=== PATIENT | male | born 1965 | race Caucasian/White ===

== ENCOUNTER 2018-06-20 07:48 | Emergency (ER) | payer OTHER ==
[~2018-06-20] VITALS: Ht 180.3 cm; Wt 80.0 kg
[~2018-06-20 07:48] MED LIST: BACTRIM DS1 TAB PO; CEPHALEXIN500 MG PO; CETIRIZINE10 MG PO; MOTRIN800 MG/TAB PO; NORCO1 TA1 PO; ULTRAM50 M1 PO
[2018-06-20 08:50] LABS: IMMATURE GRANULOCYTES 0.6 % (0.0-5.0); MEAN CELL VOLUME 93.1 fL CALC (80.0-100.0); MEAN CORPUSCULAR HGB 31.8 pG CALC (26.0-32.0); MEAN CORPUSCULAR HGB CONC 34.1 g/L CALC (32.0-36.0); NEUT# 5.07 thou/uL (1.82-7.42); RED BLOOD COUNT 5.38 mill/uL (4.70-6.10); RED CELL DISTRI WIDTH 12.9 % (11.5-15.5)
[2018-06-20 08:51] LABS: HEMATOCRIT 50.1 % (39.0-50.0); HEMOGLOBIN 17.1 g/dl (14.0-18.0)
[2018-06-20 09:05] LABS: ALBUMIN 4.4 g/dL (3.2-5.0); ALKALINE PHOSPHATASE 80 u/l (38-126); BILIRUBIN, TOTAL 0.5 mg/dL (0.0-1.4); BUN 25 mg/dL (9-20); BUN/CREATININE RATIO 26 (12-20 (CALC)); CHLORIDE 107 mmol/l (95-108); GFR > 60 ML/MIN (>=60 (CALC)); GFR FOR AFR.AMER. > 60 ML/MIN (>=60 (CALC)); LIPASE 48 u/l (23-300); POTASSIUM 4.4 mmol/l (3.5-5.1); SODIUM 138 mmol/l (137-146); TOTAL PROTEIN 7.5 g/dL (6.3-8.2)
[2018-06-20 09:06] LABS: ANION GAP 15 (6-22 (CALC)); CARBON DIOXIDE 20 mmol/l (22-30); SGOT/AST 37 u/l (17-59)
[2018-06-20] MEDS ORDERED: METRONIDAZOL250 MG PO (11:42)
[2018-06-20] MEDS ORDERED: BENTYL10 MG PO (11:42)
[2018-06-20 11:48] VITALS: BP 103/64
[2018-06-20 12:21] LABS: C. DIFFICILE TOXIN A&B NEGATIVE (NEGATIVE)
== END 2018-06-20 11:56 | disposition home or self-care (01) ==
LOC: ED 07:48
PROVIDERS: Emergency Medicine
DX: R19.7 Diarrhea, unspecified (principal); R10.33 Periumbilical pain; F17.210 Nicotine dependence, cigarettes, uncomplicated
CPT/HCPCS: Q9967

== ENCOUNTER 2020-01-07 10:39 | Emergency (ER) | payer OTHER ==
[~2020-01-07] VITALS: Ht 180.3 cm; Wt 90.0 kg
[~2020-01-07 10:39] MED LIST changes: +BENTYL10 MG PO; +METRONIDAZOL250 MG PO
[2020-01-07] MEDS ORDERED: CYCLOBENZAPR5 MG PO (14:48)
[2020-01-07 15:05] VITALS: BP 139/89
== END 2020-01-07 15:05 | disposition home or self-care (01) ==
LOC: ED 10:39
DX: M54.5 Low back pain (principal); G89.29 Other chronic pain; F17.200 Nicotine dependence, unspecified, uncomplicated

== ENCOUNTER 2020-02-17 14:05 | Emergency (ER) | payer OTHER ==
[~2020-02-17] VITALS: Ht 180.3 cm; Wt 70.0 kg
[~2020-02-17 14:05] MED LIST changes: +CYCLOBENZAPR5 MG PO
[2020-02-17] MEDS ORDERED: MOTRIN400 MG PO (15:56)
[2020-02-17] MEDS ORDERED: CYCLOBENZAPR5 MG PO (15:56)
[2020-02-17] MEDS ORDERED: NO HOME MED (16:16)
[2020-02-17 16:20] VITALS: BP 119/75
== END 2020-02-17 16:20 | disposition home or self-care (01) ==
LOC: ED 14:05
DX: M25.562 Pain in left knee (principal); M79.605 Pain in left leg; F17.200 Nicotine dependence, unspecified, uncomplicated; W01.0XXA Fall on same level from slipping, tripping and stumbling without subsequent striking against object, initial encounter; Y92.481 Parking lot as the place of occurrence of the external cause

== ENCOUNTER 2020-07-15 16:19 | Emergency (ER) | payer OTHER ==
[~2020-07-15] VITALS: Ht 177.8 cm; Wt 96.0 kg
[~2020-07-15 16:19] MED LIST changes: +MOTRIN400 MG PO; +NO HOME MED
[2020-07-15 17:54] LABS: HEMATOCRIT 46.2 % (39.0-50.0); HEMOGLOBIN 15.2 g/dl (14.0-18.0); IMMATURE GRANULOCYTES 0.4 % (0.0-5.0); MEAN CELL VOLUME 93.3 fL CALC (80.0-100.0); MEAN CORPUSCULAR HGB 30.7 pG CALC (26.0-32.0); MEAN CORPUSCULAR HGB CONC 32.9 g/dL CAL (32.0-36.0); NEUT# 4.9 thou/uL (1.82-7.42); RED BLOOD COUNT 4.95 mill/uL (4.70-6.10); RED CELL DISTRI WIDTH 12.8 % (11.5-15.5)
[2020-07-15 18:14] LABS: ANION GAP 10 (6-22 (CALC)); BUN 15 mg/dL (9-20); BUN/CREATININE RATIO 14 (12-20 (CALC)); CHLORIDE 103 mmol/l (95-108); CREATININE 1.1 mg/dL (0.7-1.3); GFR > 60 ML/MIN (>=60 (CALC)); GFR FOR AFR.AMER. > 60 ML/MIN (>=60 (CALC)); POTASSIUM 3.7 mmol/l (3.5-5.1); SODIUM 137 mmol/l (137-146)
[2020-07-15 18:18] LABS: CARBON DIOXIDE 28 mmol/l (22-30)
[2020-07-15] MEDS ORDERED: CHERATUSSIN PO (19:30)
[2020-07-15 19:31] VITALS: BP 142/78
== END 2020-07-15 19:40 | disposition home or self-care (01) ==
LOC: ED 16:19
PROVIDERS: Family Medicine
DX: R07.9 Chest pain, unspecified (principal); R05 Cough; F17.200 Nicotine dependence, unspecified, uncomplicated; Z20.822 Contact with and (suspected) exposure to COVID-19

== ENCOUNTER 2020-12-16 19:46 | Emergency (ER) | payer OTHER ==
[~2020-12-16] VITALS: Ht 177.8 cm; Wt 93.0 kg
[~2020-12-16 19:46] MED LIST changes: +CHERATUSSIN PO
[2020-12-16] MEDS ORDERED: KEFLEX500 MG PO (22:43)
[2020-12-17 00:15] VITALS: BP 111/68
== END 2020-12-17 00:15 | disposition home or self-care (01) ==
LOC: ED 19:46
DX: S61.312A Laceration without foreign body of right middle finger with damage to nail, initial encounter (principal); W26.0XXA Contact with knife, initial encounter; Y93.G9 Activity, other involving cooking and grilling; Y92.000 Kitchen of unspecified non-institutional (private) residence as the place of occurrence of the external cause

== ENCOUNTER 2021-10-27 02:33 | Emergency (ER) | payer OTHER ==
[~2021-10-27 02:33] MED LIST changes: +KEFLEX500 MG PO
== END 2021-10-27 02:41 | disposition left against medical advice (07) | DRG 951 ==
LOC: ED 02:33 → LWOBS 02:41
DX: Z53.21 Procedure and treatment not carried out due to patient leaving prior to being seen by health care provider (principal)

== ENCOUNTER 2021-11-17 18:21 | Emergency (ER) | payer OTHER ==
[~2021-11-17] VITALS: Ht 180.3 cm; Wt 91.8 kg
[2021-11-17 19:10] VITALS: BP 127/83
[2021-11-17] MEDS ORDERED: KEFLEX500 MG PO (19:46)
[2021-11-17] MEDS ORDERED: BACTRIM DS1 TAB PO (19:46)
[2021-11-17 19:53] VITALS: BP 127/83
== END 2021-11-17 19:58 | disposition home or self-care (01) ==
LOC: ED 18:21
DX: L03.011 Cellulitis of right finger (principal); F17.210 Nicotine dependence, cigarettes, uncomplicated

== ENCOUNTER 2022-08-12 01:38 | Emergency (ER) | payer OTHER ==
[2022-08-12] VITALS (10 sets, daily range): BP systolic 123–148; BP diastolic 66–90
[~2022-08-12] VITALS: Ht 180.3 cm; Wt 81.0 kg
[2022-08-12 02:58] LABS: BASO% 0.1 % (0-3); EOS% 2.1 % (0-8); HEMATOCRIT 44.5 % (39.0-50.0); HEMOGLOBIN 14.8 g/dl (14.0-18.0); IMMATURE GRANULOCYTES 0.2 % (0.0-5.0); LYMPH% 22.6 % (15-41); MEAN CELL VOLUME 93.7 fL CALC (80.0-100.0); MEAN CORPUSCULAR HGB 31.2 pG CALC (26.0-32.0); MEAN CORPUSCULAR HGB CONC 33.3 g/dL CAL (32.0-36.0); MONO% 7.1 % (2-13); NEUT# 7.4 thou/uL (1.82-7.42); NEUT% 67.9 % (42-76); RED BLOOD COUNT 4.75 mill/uL (4.70-6.10); RED CELL DISTRI WIDTH 12.8 % (11.5-15.5)
[2022-08-12 03:15] LABS: ALBUMIN 4.2 g/dL (3.2-5.0); ALKALINE PHOSPHATASE 64 u/l (38-126); BILIRUBIN, TOTAL 0.3 mg/dL (0.2-1.3); BUN 15 mg/dL (9-20); BUN/CREATININE RATIO 19 (12-20 (CALC)); CHLORIDE 109 mmol/l (95-108); CREATININE 0.8 mg/dL (0.7-1.3); GFR FOR AFR.AMER. > 60 ML/MIN (>=60 (CALC)); GFR OTHER RACES > 60 ML/MIN (>=60 (CALC)); POTASSIUM 4.1 mmol/l (3.5-5.1); SGOT/AST 25 u/l (17-59); SODIUM 138 mmol/l (137-146)
[2022-08-12 03:16] LABS: ANION GAP 11 (6-22 (CALC)); CARBON DIOXIDE 22 mmol/l (22-30)
[2022-08-12] MEDS ORDERED: VOLTAREN75 MG PO (04:12)
[2022-08-12] MEDS ORDERED: ORPHENADRINE100 MG PO (04:12)
== END 2022-08-12 04:50 | disposition home or self-care (01) ==
LOC: ED 01:38
PROVIDERS: Family Medicine
DX: S39.012A Strain of muscle, fascia and tendon of lower back, initial encounter (principal); B34.9 Viral infection, unspecified; F17.200 Nicotine dependence, unspecified, uncomplicated; X58.XXXA Exposure to other specified factors, initial encounter; Z20.822 Contact with and (suspected) exposure to COVID-19

== ENCOUNTER 2023-05-30 09:26 | Emergency (ER) | payer OTHER ==
[~2023-05-30] VITALS: Ht 180.3 cm; Wt 88.4 kg
[~2023-05-30 09:26] MED LIST changes: +ORPHENADRINE100 MG PO; +VOLTAREN75 MG PO
[2023-05-30 10:30] VITALS: BP 128/88
[2023-05-30 10:45] VITALS: BP 134/84
[2023-05-30 11:00] VITALS: BP 140/83
[2023-05-30 11:15] VITALS: BP 147/80
[2023-05-30 11:30] VITALS: BP 139/81
[2023-05-30] MEDS ORDERED: MOTRIN800 MG PO (13:02)
[2023-05-30] MEDS ORDERED: PERCOCET 5/321 COMBO PO (13:03)
[2023-05-30 13:15] VITALS: BP 139/81
== END 2023-05-30 13:15 | disposition home or self-care (01) ==
LOC: ED 09:26
DX: S43.401A Unspecified sprain of right shoulder joint, initial encounter (principal); S63.501A Unspecified sprain of right wrist, initial encounter; F17.200 Nicotine dependence, unspecified, uncomplicated; W01.0XXA Fall on same level from slipping, tripping and stumbling without subsequent striking against object, initial encounter; Y92.009 Unspecified place in unspecified non-institutional (private) residence as the place of occurrence of the external cause

== ENCOUNTER 2024-02-12 11:36 | Emergency (ER) | payer OTHER ==
[~2024-02-12] VITALS: Ht 180.3 cm; Wt 80.7 kg
[~2024-02-12 11:36] MED LIST changes: +MOTRIN800 MG PO; +PERCOCET 5/321 COMBO PO
[2024-02-12] MEDS ORDERED: Diph, Acellular Pertussis, Tet 0.5 ML/VIAL (Tdap) SDV IM STA (12:39)
[2024-02-12] MEDS ORDERED: AMOXICILLIN & POT CLAVULANATE 875 MG/TAB PO ONE (12:40)
[2024-02-12] MEDS ORDERED: AMOX/K CLAV875 M1 PO (12:47)
[2024-02-12] MEDS ORDERED: RABIES VACCINE, PCEC 2.5 UNITS/VIAL SDV IM ONE (12:50)
[2024-02-12] MEDS ORDERED: RABIES IMMUNE GLOBULIN 1,500 IU/10 ML SDV IJ ONE (12:50)
[2024-02-12 13:42] VITALS: BP 110/71
== END 2024-02-12 13:58 | disposition home or self-care (01) | DRG 605 ==
LOC: ED 11:36
DX: S81.052A Open bite, left knee, initial encounter (principal); F17.200 Nicotine dependence, unspecified, uncomplicated; W54.0XXA Bitten by dog, initial encounter; Y92.009 Unspecified place in unspecified non-institutional (private) residence as the place of occurrence of the external cause
CPT/HCPCS: 90377